=== PATIENT | female | born 1990 | race Caucasian/White ===

== ENCOUNTER 2017-07-30 09:33 | Emergency (ER) | payer MEDICAID ==
[~2017-07-30] VITALS: Ht 162.6 cm; Wt 93.0 kg
[2017-07-30 09:41] VITALS: BP_SYST 126
--- NOTE | 2017-07-30 09:45 | NUR ---
Patient to ER bed 8 to gown for evaluation. Side rails up. Report given to Payal ORTEZ.
--- NOTE | 2017-07-30 09:49 | NUR ---
Xray is at bedside.
--- NOTE | 2017-07-30 09:49 | NUR ---
Pt complains of left ankle pain s/p fall. Noted swelling to left ankle, no redness or abrasion. Pt states was looking after child and slipped on mopped floor, twisted ankle, and fell. Pt denies hitting head, no fever, n/v or diarrhea. Pt was wheeled into ER by family. No other injuries/complaints per pt or noted. Addendum: 07/30/17 at 0953 by [email or web address] fall happened last night.
--- NOTE | 2017-07-30 09:58 | NUR ---
ER Dr. Ibrahim at bedside examining patient.
--- NOTE | 2017-07-30 10:12 | NUR ---
explaining results of Xray at bedside.
[2017-07-30] MEDS ORDERED: IBUPROFEN 600 MG TABLET PO ONE (10:15)
[2017-07-30 10:28] VITALS: BP_SYST 122
--- NOTE | 2017-07-30 10:33 | NUR ---
Patient given written and verbal discharge instructions and verbalizes understanding. ER MD discussed with patient the results and treatment provided. Patient in stable condition. ID arm band removed. Rx of Motrin given. Patient educated on pain management and to follow up with PMD. Pain Scale 5. Dr. Ibrahim is aware, pain medication was given here and prescription home. Opportunity for questions provided and answered.
== END 2017-07-30 10:28 | disposition home or self-care (01) ==
LOC: SED 09:33
DX: S93.402A Sprain of unspecified ligament of left ankle, initial encounter (principal); X58.XXXA Exposure to other specified factors, initial encounter; Y93.02 Activity, running; Y92.89 Other specified places as the place of occurrence of the external cause; Y99.8 Other external cause status
CPT/HCPCS: 99284

== ENCOUNTER 2019-02-05 15:04 | Emergency (ER) | payer MEDICAID ==
[~2019-02-05] VITALS: Ht 162.6 cm; Wt 81.6 kg
[2019-02-05 15:13] VITALS: BP_SYST 148
[2019-02-05 18:35] VITALS: BP_SYST 130
== END 2019-02-05 18:35 | disposition home or self-care (01) ==
LOC: SED 15:04
DX: N63.0 Unspecified lump in unspecified breast (principal)
CPT/HCPCS: 76642; 99284

== ENCOUNTER 2019-06-06 12:57 | Emergency (ER) | payer MEDICAID ==
[~2019-06-06] VITALS: Ht 162.6 cm; Wt 81.6 kg
[2019-06-06 13:00] VITALS: BP_SYST 139
--- NOTE | 2019-06-06 15:03 | NUR ---
BROUGHT BACK TO [facility] BED AND REPORT GIVEN TO ASUNCION
--- NOTE | 2019-06-06 15:03 | NUR ---
ER Dr. Pastrana at bedside examining patient.
--- NOTE | 2019-06-06 15:08 | NUR ---
PATIENT CAME IN COMPLAINING OF SWELLING TO TIP OF RIGHT PINKY FINGER. PATIENT STATES ITS BEEN LIKE THAT FOR ABOUT 1 WEEK NOW. PATIENT COMPLAINING OF 6/10 BURNING PAIN. PATIENT STATES SHE DOESNT REMEMBER INJURING IT. PATIENT NOT COMPLAINING OF SOB, NAUSEA, OR VOMITING. PATIENT ALERT AND ORIENTED X4.
[2019-06-06] MEDS ORDERED: BACITRACIN 1 GM OINT TP ONE (15:15)
[2019-06-06] MEDS ORDERED: DIPH-TET-PERTUS Vaccine 0.5 ML VIAL (ADACEL) IM ONE (15:15)
[2019-06-06] MEDS ORDERED: LIDOCAINE 1% 10 MG/ML, 20 ML MDV INJ ONE (15:15)
--- NOTE | 2019-06-06 15:27 | NUR ---
DR ABURTO AT BEDSIDE ADMINISTERING LIDOCAINE
--- NOTE | 2019-06-06 15:46 | NUR ---
DR ABURTO AT BEDSIDE FOR PROCEDURE
--- NOTE | 2019-06-06 16:11 | NUR ---
COVERED PATIENT'S FINGER WITH STERIL GAUZE AND TAPE. NO ACTIVE BLEEDING.
[2019-06-06 16:23] VITALS: BP_SYST 134
--- NOTE | 2019-06-06 16:23 | NUR ---
Patient given written and verbal discharge instructions and verbalizes understanding. ER MD discussed with patient the results and treatment provided. Patient in stable condition. ID arm band removed. Rx of CLINDAMYCIN, NORCO, AND MOTRIN given. Patient educated on pain management and to follow up with PMD. Pain Scale 3/10 TOLERABLE. Opportunity for questions provided and answered. Medication side effect fact sheet provided.
== END 2019-06-06 16:23 | disposition home or self-care (01) ==
LOC: SED 12:57
DX: L03.011 Cellulitis of right finger (principal)
CPT/HCPCS: 10060; 90471; 90715; 99283; J2001

== ENCOUNTER 2019-08-22 15:01 | Inpatient (IN) | payer MEDICAID ==
[~2019-08-22] VITALS: Ht 162.6 cm; Wt 83.5 kg
[2019-08-22 15:08] VITALS: BP_SYST 134
--- NOTE | 2019-08-22 15:14 | NUR ---
Patient triaged and placed in waiting room. VSS and patient appears in no acute distress at this time. Accompanied by self, awaiting available bed, and MD notified of need for MSE.
--- NOTE | 2019-08-22 15:20 | NUR ---
Lola CRUZ was called . Report given to
--- NOTE | 2019-08-22 15:57 | NUR ---
ANDRE KARIMI ASSEMBLER TUBING KRISTA SIN SPEAKING WITH PT IN TRIAGE ROOM.
--- NOTE | 2019-08-22 16:21 | NUR ---
ACCORDING TO OFFICER KRISTA FROM [employer], PT DOES NOT WANT TO GIVE ANY INFORMATION. PT IS WELL KNOWN TO [employer].
--- NOTE | 2019-08-22 18:37 | NUR ---
BROUGHT BACK TO BED #7 AND REPORT GIVEN TO SYEDA
[2019-08-22] MEDS ORDERED: KETOROLAC TROMETHAMINE 30 MG VIAL IM ONE (19:00)
--- NOTE | 2019-08-22 19:00 | NUR ---
Rodri Mosley at bedside examining patient.
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
--- NOTE | 2019-08-22 19:36 | NUR ---
Medication was given, pt tolerated well. No adverse reaction, will continue to monitor.
--- NOTE | 2019-08-22 20:00 | NUR ---
ER Dr. Huang at bedside examining patient.
--- NOTE | 2019-08-22 21:36 | NUR ---
ER Dr. Huang at bedside explaining results to patient.
[2019-08-22 21:50] LABS: EOSINOPHILS # (AUTO) 0.2 K/uL (0.0-0.4); HEMOGLOBIN 11.3 g/dL (12.0-16.0)
[2019-08-22 21:55] LABS: BASOPHILS % (AUTO) 0.5 % (0.0-2.0); EOSINOPHILS % (AUTO) 1.9 % (0.0-4.0); HEMATOCRIT 33.1 % (36-48); LYMPHOCYTES # (AUTO) 3.5 K/uL (1.0-5.5); LYMPHOCYTES % (AUTO) 35.3 % (20.5-51.5); MEAN CORPUSCULAR HEMOGLOBIN 28 pg (27-31); MEAN CORPUSCULAR HGB CONC 34 % (32-36); MEAN CORPUSCULAR VOLUME 82 fL (79.0-98.0); MONOCYTES # (AUTO) 0.6 K/uL (0.0-1.0); MONOCYTES % (AUTO) 5.9 % (1.7-9.3); NEUTROPHILS # (AUTO) 5.5 K/uL (1.8-7.7); NEUTROPHILS % (AUTO) 56.4 % (40.0-70.0); PLATELET COUNT (AUTO) 335 K/uL (130-430); RED BLOOD CELL COUNT(AUTO) 4.05 MIL/uL (4.2-6.2); RED CELL DISTRIBUTION WIDTH 14.4 % (9.0-15.0); WHITE BLOOD COUNT (AUTO) 9.8 K/uL (4.8-10.8)
[2019-08-22 22:10] LABS: CALCIUM 8.2 mg/dL (8.4-11.0); CREATININE 0.57 mg/dL (0.55-1.30); POTASSIUM 3.3 mmol/L (3.5-5.1)
[2019-08-22 22:12] LABS: INR 0.9 (0.8-1.2); PROTHROMBIN TIME 9.3 SECS (9.5-12.5)
[2019-08-22 22:16] LABS: ALBUMIN 3.2 g/dL (3.4-4.8); TOTAL BILIRUBIN 0.2 mg/dL (0.0-1.0)
--- NOTE | 2019-08-22 22:36 | NUR ---
Pt resting comfortably in bed. No acute distress, will continue to monitor.
--- NOTE | 2019-08-22 23:14 | NUR ---
awaiting bed assignment.
--- NOTE | 2019-08-23 00:08 | NUR ---
Patient will be admitted to care of Dr. Mitchell. Admitted to Med Surg unit. Will go to room 110 B. Belongings list completed. Summary report printed. Report will be given at bedside.
--- NOTE | 2019-08-23 00:08 | NUR ---
Transfer to [facility]. IV present no sign or symptom of infiltration.
--- NOTE | 2019-08-23 00:23 | NUR ---
Admission Note Received patient from ER with diagnosis of intractable headache. Initial Plan of Care discussed-patient verbalized understanding. Oriented to room, call light, pain management and safety.
[2019-08-23] MEDS: KETOROLAC TROMETHAMINE 15 MG VIAL IVP PRN ×2 (00:33→08:38)
[2019-08-23 00:35] VITALS: BP_SYST 125
--- NOTE | 2019-08-23 01:00 | NUR ---
OPENING NOTES Patient alert, oriented x 4. Patient states that she feels comfortable at this time. No SOB. NO signs of respiratory distress. Patient ambulates to bathroom and void, RN assisted. Call light with patient. Bed alarm off. Patient refused. Encourage to use call light when assistance is needed. Patient verbalized understanding and demonstrated back proper use of call light. Bed locked and lowest position. Will continue to monitor
--- NOTE | 2019-08-23 03:00 | NUR ---
RN ROUNDS Patient is asleep. Patient has no signs of respiratory distress. NO SOB, no signs of discomfort at this time. Will continue to monitor.
--- NOTE | 2019-08-23 05:00 | NUR ---
ROUNDS Patient in bed sleeping at this time. No signs of discomfort noted. Chest rise and fall even bilaterally. Call light with patient. Will continue to monitor.
[2019-08-23] MEDS ORDERED: POTASSIUM CHLORIDE 20 MEQ/PKT PACKET PO ONE (05:15)
--- NOTE | 2019-08-23 06:31 | NUR ---
CLOSING NOTES/POTASSIUM PACKETS Patient in bed, awake, no s/s of acute distress noted. Patient denies any pain. Breathing even and unlabored. Potassium packets administered per order. IV site patent, no signs of infiltration or infection noted. All needs met throughout shift. Fall and safety precautions maintained throughout shift. Will continue to monitor until patient care is endorsed to oncoming dayshift nurse.
[2019-08-23] MEDS ORDERED: FLU VACC QS2019-20 36MOS UP/PF 60 MCG/0.5 ML SYRINGE I.M. PRN (07:00)
[2019-08-23 07:08] LABS: BASOPHILS % (AUTO) 0.5 % (0.0-2.0); EOSINOPHILS # (AUTO) 0.2 K/uL (0.0-0.4); HEMATOCRIT 32.3 % (36-48); LYMPHOCYTES # (AUTO) 2.8 K/uL (1.0-5.5); LYMPHOCYTES % (AUTO) 34.5 % (20.5-51.5); MEAN CORPUSCULAR HEMOGLOBIN 28 pg (27-31); MEAN CORPUSCULAR HGB CONC 34 % (32-36); MEAN CORPUSCULAR VOLUME 82 fL (79.0-98.0); MONOCYTES # (AUTO) 0.4 K/uL (0.0-1.0); MONOCYTES % (AUTO) 5.3 % (1.7-9.3); NEUTROPHILS # (AUTO) 4.7 K/uL (1.8-7.7); NEUTROPHILS % (AUTO) 56.7 % (40.0-70.0); PLATELET COUNT (AUTO) 321 K/uL (130-430); RED BLOOD CELL COUNT(AUTO) 3.94 MIL/uL (4.2-6.2); RED CELL DISTRIBUTION WIDTH 14.7 % (9.0-15.0); WHITE BLOOD COUNT (AUTO) 8.2 K/uL (4.8-10.8)
[2019-08-23 07:22] LABS: ALBUMIN 2.8 g/dL (3.4-4.8); CALCIUM 8.2 mg/dL (8.4-11.0); CREATININE 0.5 mg/dL (0.55-1.30); POTASSIUM 3.7 mmol/L (3.5-5.1); TOTAL BILIRUBIN 0.2 mg/dL (0.0-1.0)
--- NOTE | 2019-08-23 07:30 | NUR ---
Opening note patient resting in bed at this time, A/Ox4, no complaints of pain. IV patent, intact. No infiltration noted. No SOB. On safety and aspiration precautions, HOB kept elevated, bed alarm on, 3 side rails up, call light within reach. Patient in stable condition. Will continue to monitor.
[2019-08-23 08:19] VITALS: BP_SYST 126
--- NOTE | 2019-08-23 08:30 | NUR ---
Flu shot Pain medication given as ordered. patient requested flu shot, given as ordered. no adverse side effects noted. patient in stable condition.
--- NOTE | 2019-08-23 10:30 | NUR ---
Rounds Patient resting in bed at this time, no complaints of pain. Iv patent, intact. No SOB. Patient ambulated to the bathroom and back to bed with steady gait.
[2019-08-23 11:31] VITALS: BP_SYST 119
--- NOTE | 2019-08-23 12:30 | NUR ---
Lunch patient sitting up in bed at this time, eating lunch, tolerating well. No nausea, no vomiting.
[2019-08-23 13:54] VITALS: BP_SYST 140
[2019-08-23 13:56] VITALS: BP_SYST 140
--- NOTE | 2019-08-23 14:19 | NUR ---
shower patient requesting to shower prior to discharge. Hygiene tools provided. Patient showering at this time.
--- NOTE | 2019-08-23 15:56 | NUR ---
D/C Patient Patient given medication reconciliation form and D/C instructions. Exit Care provided. Patient verbalized understanding. MD discussed with patient the results and treatment provided. Ambulatory with steady gait for discharge to home. Patient in stable condition, ID band removed. IV catheter removed, intact and dressing applied, no active bleeding.List of local [facility] provided. Patient educated on pain management. All belongings sent with patient.
== END 2019-08-23 15:45 | disposition home health service (06) | DRG 115 ==
LOC: SED 15:01 → SMU 23:07
PROVIDERS: ADMIT Family Medicine; ATTEND Family Medicine
DX: S09.8XXA Other specified injuries of head, initial encounter (principal); E44.0 Moderate protein-calorie malnutrition; S19.9XXA Unspecified injury of neck, initial encounter; D64.9 Anemia, unspecified; Z68.31 Body mass index [BMI] 31.0-31.9, adult; Z79.899 Other long term (current) drug therapy; Y04.0XXA Assault by unarmed brawl or fight, initial encounter; Y93.89 Activity, other specified; Y92.89 Other specified places as the place of occurrence of the external cause; Y99.8 Other external cause status
CPT/HCPCS: 36415; 70450-TC; 70486-TC; 80053; 81025; 85025; 85610-TC; 85730-TC; 96372; 99285; J1885

== ENCOUNTER 2019-12-21 16:25 | Emergency (ER) | payer MEDICAID ==
[~2019-12-21] VITALS: Ht 162.6 cm; Wt 81.6 kg
[2019-12-21 16:25] VITALS: BP_SYST 164
[2019-12-21] MEDS ORDERED: DIPH-TET-PERTUS Vaccine 0.5 ML VIAL (ADACEL) I.M. ONE (16:45)
[2019-12-21] MEDS ORDERED: ACETAMINOPHEN 500 MG TABLET PO ONE (16:45)
[2019-12-21 17:15] VITALS: BP_SYST 164
== END 2019-12-21 17:21 | disposition home or self-care (01) ==
LOC: SED 16:25
DX: L03.011 Cellulitis of right finger (principal)
CPT/HCPCS: 90715; 99283

== ENCOUNTER 2020-02-13 12:46 | Emergency (ER) | payer MEDICAID ==
[~2020-02-13] VITALS: Ht 162.6 cm; Wt 72.6 kg
[2020-02-13 12:46] VITALS: BP_SYST 154
[2020-02-13 14:40] VITALS: BP_SYST 154
== END 2020-02-13 14:40 | disposition home or self-care (01) ==
LOC: SED 12:46
DX: M54.12 Radiculopathy, cervical region (principal)
CPT/HCPCS: 72040-TC; 73030; 81002; 99284

== ENCOUNTER 2020-03-11 06:16 | Emergency (ER) | payer MEDICAID ==
[~2020-03-11] VITALS: Ht 162.6 cm; Wt 81.6 kg
[2020-03-11 06:16] VITALS: BP_SYST 151
[2020-03-11] MEDS ORDERED: LIDOCAINE/EPI 1% 1:100000 20 ML VIAL INJ ONE (06:57)
[2020-03-11] MEDS ORDERED: BACITRACIN 1 GM OINT TP ONE (07:50)
[2020-03-11 07:58] VITALS: BP_SYST 145
== END 2020-03-11 07:50 | disposition home or self-care (01) ==
LOC: SED 06:16
DX: S41.112A Laceration without foreign body of left upper arm, initial encounter (principal); W26.8XXA Contact with other sharp object(s), not elsewhere classified, initial encounter; Y93.89 Activity, other specified; Y92.89 Other specified places as the place of occurrence of the external cause; Y99.8 Other external cause status
CPT/HCPCS: 99282

== ENCOUNTER 2020-03-13 15:25 | Emergency (ER) | payer MEDICAID ==
[~2020-03-13] VITALS: Ht 162.6 cm; Wt 81.6 kg
[2020-03-13 15:30] VITALS: BP_SYST 142
--- NOTE | 2020-03-13 15:30 | NUR ---
Patient to ER bed H1 to gown for evaluation. Side rails up. Report given to NEELIMA Mayen.
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
--- NOTE | 2020-03-13 15:40 | NUR ---
ER Dr. Hoyt at bedside examining patient.
[2020-03-13 15:58] VITALS: BP_SYST 142
--- NOTE | 2020-03-13 15:58 | NUR ---
Patient given written and verbal discharge instructions and verbalizes understanding. DR. JIMMY AGUILERA MD discussed with patient the results and treatment provided. Patient in stable condition. ID arm band removed. Rx of given. Patient educated on pain management and to follow up with PMD. Pain Scale 0/10. Opportunity for questions provided and answered. Medication side effect fact sheet provided.
[2020-03-13] MEDS ORDERED: BACITRACIN 1 GM OINT TP ONE (16:00)
== END 2020-03-13 15:58 | disposition home or self-care (01) ==
LOC: SED 15:25
DX: S41.112D Laceration without foreign body of left upper arm, subsequent encounter (principal); X58.XXXD Exposure to other specified factors, subsequent encounter
CPT/HCPCS: 99282

== ENCOUNTER 2020-04-16 17:41 | Emergency (ER) | payer MEDICAID ==
[~2020-04-16] VITALS: Ht 162.6 cm; Wt 81.6 kg
[2020-04-16 18:16] VITALS: BP_SYST 132
[2020-04-16 19:07] VITALS: BP_SYST 132
== END 2020-04-16 19:00 | disposition home or self-care (01) ==
LOC: SED 17:41
DX: N39.0 Urinary tract infection, site not specified (principal)
CPT/HCPCS: 81002; 99283

== ENCOUNTER 2020-08-08 19:52 | Emergency (ER) | payer MEDICAID ==
[~2020-08-08] VITALS: Ht 162.6 cm; Wt 81.6 kg
[2020-08-08 20:10] VITALS: BP_SYST 155
[2020-08-08 20:41] LABS: BILIRUBIN,URINE 1+ (NEGATIVE); BLOOD, URINE 2+ (NEGATIVE); COLOR,URINE YELLOW (YELLOW); GLUCOSE,URINE NEGATIVE (NEGATIVE); KETONES,URINE TRACE (NEGATIVE); NITRITE, URINE NEGATIVE (NEGATIVE); PROTEIN URINE 1+ (NEGATIVE)
[2020-08-08 20:57] LABS: CLARITY/URINE HAZY (CLEAR); LEUKOCYTE ESTERASE ,URINE 3+ (NEGATIVE)
[2020-08-08 20:58] LABS: RBC,URINE 0-3 /HPF (0-3); WBC,URINE 20-50 /HPF (0-3)
[2020-08-08 20:59] LABS: BACTERIA,URINE FEW /HPF (None Seen); MUCUS,URINE 2+ /LPF (None Seen)
[2020-08-08 21:30] VITALS: BP_SYST 155
[2020-08-08] MEDS ORDERED: cephALEXin 500 MG CAPSULE PO ONE (21:30)
[2020-08-08] MEDS ORDERED: PHENAZOPYRIDINE HCL 100 MG TABLET PO ONE (21:30)
== END 2020-08-08 21:30 | disposition home or self-care (01) ==
LOC: SED 19:52
DX: N39.0 Urinary tract infection, site not specified (principal)
CPT/HCPCS: 81000-TC; 81025; 99283

== ENCOUNTER 2020-08-31 02:16 | Emergency (ER) | payer MEDICAID ==
[~2020-08-31] VITALS: Ht 162.6 cm; Wt 86.2 kg
[2020-08-31 02:20] VITALS: BP_SYST 165
--- NOTE | 2020-08-31 02:20 | NUR ---
Patient to ER bed 7 to gown for evaluation. Side rails up. Report given to PIEDAD.
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
--- NOTE | 2020-08-31 02:33 | NUR ---
ER Dr. LOERA at bedside examining patient.
[2020-08-31] MEDS ORDERED: METOCLOPRAMIDE HCL 10 MG TABLET PO ONE (02:45)
[2020-08-31] MEDS ORDERED: DIPHENHYDRAMINE HCL 25 MG CAPSULE PO ONE (02:45)
[2020-08-31] MEDS ORDERED: METOCLOPRAMIDE HCL 10 MG TABLET ONE (03:10)
[2020-08-31 03:41] VITALS: BP_SYST 139
--- NOTE | 2020-08-31 03:41 | NUR ---
Patient given written and verbal discharge instructions and verbalizes understanding. ER MD discussed with patient the results and treatment provided. Patient in stable condition. ID arm band removed. Rx of reglan given. Patient educated on pain management and to follow up with PMD. Opportunity for questions provided and answered. Medication side effect fact sheet provided.
== END 2020-08-31 03:41 | disposition home or self-care (01) ==
LOC: SED 02:16
DX: G43.909 Migraine, unspecified, not intractable, without status migrainosus (principal); I10 Essential (primary) hypertension
CPT/HCPCS: 99283; J8597; Q0163